=== PATIENT | male | born 1990 | race African-American/Black ===

== ENCOUNTER → 2023-11-16 | Outpatient (CLI) | payer BC ==
[2023-11-16 10:49] LABS: BASO # 0.03 K/mm3 (0.02-0.10); EOS # 0.09 K/mm3 (0.04-0.40); EOS % 1.8 % (0.0-4.0); HEMATOCRIT 47.9 % (42.0-52.0); HEMOGLOBIN 15.9 g/dL (13.5-18.0); LYMPH# 2.42 K/mm3 (1.50-4.00); MEAN CELL VOLUME 91 fl (78-100); MEAN CORPUSCULAR HEMOGLOBIN 30 pg (27-31); MEAN CORPUSCULAR HGB CONC 33 g/dL (33-37); MONO # 0.33 K/mm3 (0.20-0.80); NEU # 2.02 K/mm3 (1.40-6.50); PLATELET COUNT 276 K/mm3 (130-400); RED BLOOD COUNT 5.26 M/mm3 (4.20-5.60); RED CELL DISTRIBUTION WIDTH 12.9 % (11.5-14.5); WHITE BLOOD COUNT 4.9 K/mm3 (4.8-10.8)
[2023-11-16 10:52] LABS: ALBUMIN 4.6 g/dL (3.5-5.0)
[2023-11-16 10:53] LABS: CALCIUM 10.4 mg/dL (8.3-10.5)
[2023-11-16 10:55] LABS: TOTAL PROTEIN 7.5 g/dL (6.4-8.3)
[2023-11-16 10:56] LABS: TOTAL BILIRUBIN 0.4 mg/dL (0.2-1.2)
== END ==
LOC: LAB 10:28
DX: F41.1 Generalized anxiety disorder (principal); F31.81 Bipolar II disorder; Z79.899 Other long term (current) drug therapy

== ENCOUNTER 2024-02-14 19:40 | Emergency (ER) | payer BC ==
[2024-02-14 20:18] LABS: BASO # 0.03 K/mm3 (0.02-0.10); EOS # 0.12 K/mm3 (0.04-0.40); HEMATOCRIT 44.9 % (42.0-52.0); HEMOGLOBIN 14.7 g/dL (13.5-18.0); LYMPH# 2.96 K/mm3 (1.50-4.00); MEAN CELL VOLUME 91 fl (78-100); MEAN CORPUSCULAR HEMOGLOBIN 30 pg (27-31); MEAN CORPUSCULAR HGB CONC 33 g/dL (33-37); MEAN PLATELET VOLUME 9.1 fl (7.4-10.4); MONO # 0.52 K/mm3 (0.20-0.80); NEU # 2.44 K/mm3 (1.40-6.50); PLATELET COUNT 230 K/mm3 (130-400); RED BLOOD COUNT 4.92 M/mm3 (4.20-5.60); RED CELL DISTRIBUTION WIDTH 12.9 % (11.5-14.5); WHITE BLOOD COUNT 6.1 K/mm3 (4.8-10.8)
[2024-02-14 20:25] LABS: ALBUMIN 4.5 g/dL (3.5-5.0)
[2024-02-14 20:27] LABS: TOTAL PROTEIN 7.2 g/dL (6.4-8.3)
[2024-02-14 20:29] LABS: TOTAL BILIRUBIN 0.2 mg/dL (0.2-1.2)
[2024-02-14] MEDS ORDERED: PANTOPRAZOLE SO40 MG PO (21:14)
[2024-02-14] MEDS ORDERED: Iohexol 300 - 100 ML VIAL IV ONE (21:45)
[2024-02-14 22:27] VITALS: BP 121/85
== END 2024-02-14 22:29 | disposition home or self-care (01) ==
LOC: ED 19:40
PROVIDERS: Physician Assistant
DX: K92.1 Melena (principal)
CPT/HCPCS: Q9967